=== PATIENT | female | born 1960 | race Caucasian/White ===

== ENCOUNTER → 2016-09-24 | Outpatient (CLI) | payer OTHER | LOC: NM 07:50 | DX: C50.411 Malignant neoplasm of upper-outer quadrant of right female breast (principal); R92.8 Other abnormal and inconclusive findings on diagnostic imaging of breast; D05.02 Lobular carcinoma in situ of left breast; N95.1 Menopausal and female climacteric states | CPT/HCPCS: 78306; A9503 ==

== ENCOUNTER → 2016-09-26 | Outpatient (CLI) | payer OTHER | LOC: CT 14:55 | DX: C50.411 Malignant neoplasm of upper-outer quadrant of right female breast (principal); R92.8 Other abnormal and inconclusive findings on diagnostic imaging of breast; D05.02 Lobular carcinoma in situ of left breast; N95.1 Menopausal and female climacteric states; Z98.890 Other specified postprocedural states; N63 Unspecified lump in breast | CPT/HCPCS: 71260; J7050; Q9962 ==

== ENCOUNTER → 2016-12-04 | Outpatient (CLI) | payer OTHER | LOC: KOH-I 10:00 | DX: C50.411 Malignant neoplasm of upper-outer quadrant of right female breast (principal); R92.8 Other abnormal and inconclusive findings on diagnostic imaging of breast; D05.02 Lobular carcinoma in situ of left breast; N95.1 Menopausal and female climacteric states | CPT/HCPCS: 77080 ==